=== PATIENT | female | born 1960 | race African-American/Black ===

== ENCOUNTER 2018-08-15 16:31 | Inpatient (IN) | payer MEDICAID ==
[~2018-08-15] VITALS: Ht 175.3 cm; Wt 158.8 kg
[2018-08-15] MEDS ORDERED: ASPIRIN 81MG TABLET PO ONE (17:15)
[2018-08-15] MEDS ORDERED: NITROGLYCERIN 0.4MG TABLET SL SL PRN (17:15)
[2018-08-15 17:59] LABS: BASOPHILS % 0.3 % (0.0-2.0); EOSINOPHILS % 2.2 % (0.0-5.0); HEMATOCRIT. 35.6 % (36.0-48.0); HEMOGLOBIN. 11.6 g/dL (12.0-16.0); LYMPHOCYTES % 42.9 % (20.0-50.0); MEAN CORPUSCULAR VOLUME 92.4 fL (81.0-99.0); MEAN PLATELET VOLUME 10.5 fl (7.4-10.4); MONOCYTES % 8.1 % (2.0-8.0); NEUTROPHILS % 46.5 % (40.0-76.0); PLATELET 174 x1000/uL (130-400); RED BLOOD CELL COUNT 3.86 mill/uL (4.2-5.4); RED CELL DISTRIBUTION WIDTH 17.7 % (11.6-14.6)
[2018-08-15] MEDS ORDERED: BENZONATATE 200MG CAPSULE PO NR (18:00)
[2018-08-15] MEDS ORDERED: SODIUM CHLORIDE 0.9% 1000ML BAG (SEPSIS BOLUS) IV ONE (18:00)
[2018-08-15] MEDS ORDERED: CEFTRIAXONE 1 G PREMIX 50 ML IV ONE (18:00)
[2018-08-15 18:03] LABS: CHLORIDE 108 mEq/L (98-107)
[2018-08-15 18:08] LABS: PROTHROMBIN TIME 10.7 sec (9.6-11.0)
[2018-08-15 20:40] LABS: CLARITY URINE CLOUDY (CLEAR); COLOR URINE DARK YELLOW (YELLOW); KETONES URINE 1+ (NEGATIVE); LEUKOCYTE ESTERASE URINE 2+ (NEGATIVE); NITRITE URINE NEGATIVE (NEGATIVE); OCCULT BLOOD URINE NEGATIVE (NEGATIVE); PH URINE 5.5 (4.5-8.0); PROTEIN URINE NEGATIVE (NEGATIVE); SPECIFIC GRAVITY URINE 1.034 (1.005-1.030)
[2018-08-16] VITALS (7 sets, daily range): BP systolic 96–121; BP diastolic 42–61
[2018-08-16] MEDS ORDERED: PARO-41 PO (01:41)
[2018-08-16] MEDS ORDERED: ATOR20TA65 PO (01:41)
[2018-08-16] MEDS ORDERED: OXYB5SYR2 PO (01:41)
[2018-08-16] MEDS ORDERED: ALLO300T2 PO (01:41)
[2018-08-16] MEDS ORDERED: METF-414 PO (01:41)
[2018-08-16] MEDS ORDERED: LISI40TA4 PO (01:41)
[2018-08-16] MEDS ORDERED: AMLO10TA80 PO (01:41)
[2018-08-16] MEDS ORDERED: NILO150C PO (01:41)
[2018-08-16] MEDS ORDERED: ASPI-1158 PO (01:41)
[2018-08-16] MEDS ORDERED: FOLI0.4T2 PO (01:41)
[2018-08-16] MEDS ORDERED: FURO-151 PO (01:41)
[2018-08-16] MEDS ORDERED: GABA-531 PO (01:42)
[2018-08-16] MEDS ORDERED: IPRATROPIUM/ALBUTEROL 0.5-3(2.5)MG/3ML NEB HHN PRN (01:45)
[2018-08-16] MEDS ORDERED: DEXTROSE 50% WATER 50ML SYRINGE IV PRN (02:00)
[2018-08-16] MEDS: GUAIFENESIN 200MG/10ML SUGAR FREE UDC PO PRN ×3 (02:05→21:48)
[2018-08-16] MEDS ORDERED: ACETAMINOPHEN 325MG TABLET PO PRN (05:45)
[2018-08-16] MEDS: LEVOFLOXACIN 500MG PREMIX 100 ML IV SCH (06:03)
[2018-08-16] MEDS: INSULIN LISPRO 100 UNITS/ML SUBCUT SCH ×4 (06:16→22:07)
[2018-08-16] MEDS: BLOOD SUGAR DIAGNOSTIC STRIP TEST SCH ×4 (06:16→21:44)
[2018-08-16 08:12] LABS: BASOPHILS % 0.9 % (0.0-2.0); EOSINOPHILS % 2.9 % (0.0-5.0); HEMATOCRIT. 34.6 % (36.0-48.0); HEMOGLOBIN. 10.9 g/dL (12.0-16.0); LYMPHOCYTES % 45.3 % (20.0-50.0); MEAN CORPUSCULAR HEMOGLOBIN 29.2 pg (28.0-32.0); MEAN CORPUSCULAR VOLUME 92.8 fL (81.0-99.0); MEAN PLATELET VOLUME 11.7 fl (7.4-10.4); MONOCYTES % 10.5 % (2.0-8.0); NEUTROPHILS % 40.4 % (40.0-76.0); PLATELET 156 x1000/uL (130-400); RED BLOOD CELL COUNT 3.73 mill/uL (4.2-5.4); RED CELL DISTRIBUTION WIDTH 17.6 % (11.6-14.6)
[2018-08-16] MEDS: ALLOPURINOL 300 MG TABLET PO SCH ×2 (08:50→17:31)
[2018-08-16] MEDS: ASPIRIN 81MG EC TABLET PO SCH (08:50)
[2018-08-16] MEDS: GABAPENTIN 300MG CAPSULE PO SCH ×2 (08:50→17:31)
[2018-08-16] MEDS: NILOTINIB PO SCH ×2 (08:50→21:57)
[2018-08-16] MEDS: AMLODIPINE 10MG TABLET PO SCH (08:50)
[2018-08-16 08:52] LABS: CHLORIDE 109 mEq/L (98-107)
[2018-08-16] MEDS ORDERED: MEDICATION NOT ON FORMULARY EA (Gabapentin 300 MG) PO SCH (09:00)
[2018-08-16] MEDS ORDERED: MEDICATION NOT ON FORMULARY EA (Aspirin (Aspirin Ec) 81 MG) PO SCH (09:00)
[2018-08-16] MEDS ORDERED: FOLIC ACID 0.4 MG PO SCH (09:00)
[2018-08-16] MEDS ORDERED: [UNRECOGNIZED DRUG - OTHER] PO SCH (09:00)
[2018-08-16] MEDS ORDERED: MEDICATION NOT ON FORMULARY EA (Allopurinol 300 MG) PO SCH (09:00)
[2018-08-16] MEDS: FOLIC ACID 1MG TABLET PO SCH (14:51)
[2018-08-16 18:36] LABS: LDL CHOLESTEROL 63 mg/dL (5-100)
[2018-08-16 18:38] LABS: HDL CHOLESTEROL 59 mg/dL (40-59)
[2018-08-16] MEDS: ATORVASTATIN CALCIUM 20MG TABLET PO SCH (21:44)
[2018-08-16] MEDS: LORAZEPAM 2MG/ML CPJ IV PRN (23:11)
[2018-08-16] MEDS: BENZONATATE 100MG CAPSULE PO PRN (23:11)
[2018-08-17] VITALS: BP 146/77
[2018-08-17 04:00] VITALS: BP 144/73
[2018-08-17] MEDS: BENZONATATE 100MG CAPSULE PO PRN ×2 (06:15→16:42)
[2018-08-17] MEDS: LEVOFLOXACIN 500MG PREMIX 100 ML IV SCH (06:15)
[2018-08-17] MEDS: LORAZEPAM 2MG/ML CPJ IV PRN (06:15)
[2018-08-17] MEDS: MORPHINE SULFATE 2 MG/ML CPJ (NOT FOR IM USE) IV PRN ×2 (06:18→21:27)
[2018-08-17] MEDS: BLOOD SUGAR DIAGNOSTIC STRIP TEST SCH ×4 (06:18→21:28)
[2018-08-17] MEDS: INSULIN LISPRO 100 UNITS/ML SUBCUT SCH ×4 (06:57→22:07)
[2018-08-17 07:57] VITALS: BP 131/54
[2018-08-17] MEDS: AMLODIPINE 10MG TABLET PO SCH (08:09)
[2018-08-17] MEDS: ALLOPURINOL 300 MG TABLET PO SCH ×2 (08:09→16:42)
[2018-08-17] MEDS: GABAPENTIN 300MG CAPSULE PO SCH ×2 (08:09→16:42)
[2018-08-17] MEDS: FOLIC ACID 1MG TABLET PO SCH (08:09)
[2018-08-17] MEDS: ASPIRIN 81MG EC TABLET PO SCH (08:09)
[2018-08-17] MEDS: NILOTINIB PO SCH ×2 (08:10→21:24)
[2018-08-17 08:36] LABS: BASOPHILS % 0.7 % (0.0-2.0); HEMATOCRIT. 34.6 % (36.0-48.0); MEAN CORPUSCULAR HEMOGLOBIN 29.7 pg (28.0-32.0); MEAN CORPUSCULAR VOLUME 93.4 fL (81.0-99.0); MEAN PLATELET VOLUME 11.8 fl (7.4-10.4); MONOCYTES % 9.2 % (2.0-8.0); NEUTROPHILS % 46.1 % (40.0-76.0); PLATELET 167 x1000/uL (130-400); RED BLOOD CELL COUNT 3.71 mill/uL (4.2-5.4); RED CELL DISTRIBUTION WIDTH 17.3 % (11.6-14.6)
[2018-08-17] MEDS ORDERED: ASPIRIN 81MG EC TABLET PO SCH (09:00)
[2018-08-17 09:09] LABS: CHLORIDE 107 mEq/L (98-107)
[2018-08-17] MEDS: GUAIFENESIN 200MG/10ML SUGAR FREE UDC PO PRN ×2 (10:42→21:25)
[2018-08-17 12:00] VITALS: BP 150/80
[2018-08-17 16:00] VITALS: BP 117/51
[2018-08-17] MEDS: ENOXAPARIN 40MG/0.4ML SYR SUBCUT SCH (17:32)
[2018-08-17 20:00] VITALS: BP 131/75
[2018-08-17] MEDS: ATORVASTATIN CALCIUM 20MG TABLET PO SCH (21:24)
[2018-08-18 00:18] VITALS: BP 117/55
[2018-08-18] MEDS: BENZONATATE 100MG CAPSULE PO PRN ×3 (01:02→20:37)
[2018-08-18 04:00] VITALS: BP 135/61
[2018-08-18] MEDS: ENOXAPARIN 40MG/0.4ML SYR SUBCUT SCH ×2 (06:24→17:13)
[2018-08-18] MEDS: BLOOD SUGAR DIAGNOSTIC STRIP TEST SCH ×4 (06:25→20:39)
[2018-08-18] MEDS: LEVOFLOXACIN 500MG PREMIX 100 ML IV SCH (06:25)
[2018-08-18] MEDS: INSULIN LISPRO 100 UNITS/ML SUBCUT SCH ×4 (06:57→21:10)
[2018-08-18 08:00] VITALS: BP 142/74
[2018-08-18] MEDS: GUAIFENESIN 200MG/10ML SUGAR FREE UDC PO PRN (08:39)
[2018-08-18] MEDS: GABAPENTIN 300MG CAPSULE PO SCH ×2 (08:40→17:14)
[2018-08-18] MEDS: FOLIC ACID 1MG TABLET PO SCH (08:40)
[2018-08-18] MEDS: ALLOPURINOL 300 MG TABLET PO SCH ×2 (08:40→17:14)
[2018-08-18] MEDS: AMLODIPINE 10MG TABLET PO SCH (08:40)
[2018-08-18] MEDS: MORPHINE SULFATE 2 MG/ML CPJ (NOT FOR IM USE) IV PRN ×3 (08:41→17:14)
[2018-08-18] MEDS: ASPIRIN 81MG EC TABLET PO SCH (08:42)
[2018-08-18] MEDS: NILOTINIB PO SCH ×3 (09:00→20:39)
[2018-08-18 10:49] LABS: BASOPHILS % 1.1 % (0.0-2.0); EOSINOPHILS % 2.8 % (0.0-5.0); HEMATOCRIT. 34.3 % (36.0-48.0); HEMOGLOBIN. 10.9 g/dL (12.0-16.0); LYMPHOCYTES % 34.9 % (20.0-50.0); MEAN CORPUSCULAR HEMOGLOBIN 29.4 pg (28.0-32.0); MEAN CORPUSCULAR VOLUME 92.2 fL (81.0-99.0); MEAN PLATELET VOLUME 11.9 fl (7.4-10.4); MONOCYTES % 8.4 % (2.0-8.0); NEUTROPHILS % 52.8 % (40.0-76.0); PLATELET 176 x1000/uL (130-400); RED BLOOD CELL COUNT 3.72 mill/uL (4.2-5.4); RED CELL DISTRIBUTION WIDTH 17.2 % (11.6-14.6)
[2018-08-18 11:14] LABS: CHLORIDE 106 mEq/L (98-107)
[2018-08-18 12:00] VITALS: BP 112/51
[2018-08-18] MEDS: OXYBUTYNIN CHLORIDE 5MG TABLET PO SCH (14:44)
[2018-08-18 15:57] VITALS: BP 114/54
[2018-08-18] MEDS: PROMETHAZINE/DEXTROMETHORPHAN 6.25-15MG/5ML BOTTLE 120ML PO PRN (17:12)
[2018-08-18] MEDS: FLUCONAZOLE 100MG TABLET PO SCH (17:14)
[2018-08-18 20:00] VITALS: BP 110/51
[2018-08-18] MEDS: ATORVASTATIN CALCIUM 20MG TABLET PO SCH (20:39)
[2018-08-19] VITALS: BP 153/83
[2018-08-19] MEDS: MORPHINE SULFATE 2 MG/ML CPJ (NOT FOR IM USE) IV PRN ×5 (00:01→22:51)
[2018-08-19 04:00] VITALS: BP 129/65
[2018-08-19] MEDS: PROMETHAZINE/DEXTROMETHORPHAN 6.25-15MG/5ML BOTTLE 120ML PO PRN ×3 (06:36→11:56)
[2018-08-19] MEDS: ENOXAPARIN 40MG/0.4ML SYR SUBCUT SCH ×2 (06:36→17:52)
[2018-08-19] MEDS: LEVOFLOXACIN 500MG PREMIX 100 ML IV SCH (06:37)
[2018-08-19] MEDS: BLOOD SUGAR DIAGNOSTIC STRIP TEST SCH ×4 (06:37→20:41)
[2018-08-19] MEDS: INSULIN LISPRO 100 UNITS/ML SUBCUT SCH ×4 (06:42→20:54)
[2018-08-19 08:00] VITALS: BP 145/70
[2018-08-19] MEDS: NILOTINIB PO SCH ×3 (09:00→20:51)
[2018-08-19] MEDS: ASPIRIN 81MG EC TABLET PO SCH (09:06)
[2018-08-19] MEDS: AMLODIPINE 10MG TABLET PO SCH (09:06)
[2018-08-19] MEDS: ALLOPURINOL 300 MG TABLET PO SCH ×2 (09:06→17:10)
[2018-08-19] MEDS: GABAPENTIN 300MG CAPSULE PO SCH ×2 (09:06→17:10)
[2018-08-19] MEDS: FLUCONAZOLE 100MG TABLET PO SCH (09:06)
[2018-08-19] MEDS: OXYBUTYNIN CHLORIDE 5MG TABLET PO SCH (09:06)
[2018-08-19] MEDS: FOLIC ACID 1MG TABLET PO SCH (09:06)
[2018-08-19] MEDS: BENZONATATE 100MG CAPSULE PO PRN (09:29)
[2018-08-19 12:00] VITALS: BP 112/57
[2018-08-19 16:00] VITALS: BP 111/56
[2018-08-19] MEDS ORDERED: HYDROCODONE/ACETAMINOPHEN 5/325MG TABLET PO PRN (16:15)
[2018-08-19 20:00] VITALS: BP 118/51
[2018-08-19] MEDS: ATORVASTATIN CALCIUM 20MG TABLET PO SCH (20:51)
[2018-08-20] VITALS: BP 121/53
[2018-08-20 04:00] VITALS: BP 142/82
[2018-08-20] MEDS: BLOOD SUGAR DIAGNOSTIC STRIP TEST SCH ×2 (06:16→11:49)
[2018-08-20] MEDS: ENOXAPARIN 40MG/0.4ML SYR SUBCUT SCH (06:31)
[2018-08-20] MEDS: INSULIN LISPRO 100 UNITS/ML SUBCUT SCH ×2 (06:33→12:17)
[2018-08-20 08:00] VITALS: BP 141/78
[2018-08-20] MEDS: AMLODIPINE 10MG TABLET PO SCH (08:38)
[2018-08-20] MEDS: GABAPENTIN 300MG CAPSULE PO SCH (08:38)
[2018-08-20] MEDS: ALLOPURINOL 300 MG TABLET PO SCH (08:39)
[2018-08-20] MEDS: FOLIC ACID 1MG TABLET PO SCH (08:39)
[2018-08-20] MEDS: ASPIRIN 81MG EC TABLET PO SCH (08:39)
[2018-08-20] MEDS: FLUCONAZOLE 100MG TABLET PO SCH (08:39)
[2018-08-20] MEDS: OXYBUTYNIN CHLORIDE 5MG TABLET PO SCH (08:39)
[2018-08-20] MEDS: NILOTINIB PO SCH (08:40)
[2018-08-20] MEDS: MORPHINE SULFATE 2 MG/ML CPJ (NOT FOR IM USE) IV PRN (08:47)
[2018-08-20] MEDS: PROMETHAZINE/DEXTROMETHORPHAN 6.25-15MG/5ML BOTTLE 120ML PO PRN (09:28)
[2018-08-20 11:37] VITALS: BP 111/43
[2018-08-20 12:00] VITALS: BP 111/43
== END 2018-08-20 14:55 | disposition home or self-care (01) | DRG 720 ==
LOC: ER 16:55 → 8WST 18:40 → ENRESERV 22:34
PROVIDERS: ADMIT Internal Medicine; ATTEND Internal Medicine
PROC: 5A09357 Assistance with Respiratory Ventilation, Less than 24 Consecutive Hours, Continuous Positive Airway Pressure (ICD-10-PCS; principal; 2018-08-17)
DX: A41.9 Sepsis, unspecified organism (principal); J96.00 Acute respiratory failure, unspecified whether with hypoxia or hypercapnia; I50.43 Acute on chronic combined systolic (congestive) and diastolic (congestive) heart failure; I27.20 Pulmonary hypertension, unspecified; C95.90 Leukemia, unspecified not having achieved remission; E44.1 Mild protein-calorie malnutrition; E66.2 Morbid (severe) obesity with alveolar hypoventilation; E87.8 Other disorders of electrolyte and fluid balance, not elsewhere classified; I11.0 Hypertensive heart disease with heart failure; I95.9 Hypotension, unspecified; E11.65 Type 2 diabetes mellitus with hyperglycemia; R55 Syncope and collapse; D64.9 Anemia, unspecified; N39.0 Urinary tract infection, site not specified; E78.5 Hyperlipidemia, unspecified; I42.9 Cardiomyopathy, unspecified; J06.9 Acute upper respiratory infection, unspecified; Z95.810 Presence of automatic (implantable) cardiac defibrillator; Z79.4 Long term (current) use of insulin; Z79.899 Other long term (current) drug therapy; Z87.01 Personal history of pneumonia (recurrent); Z98.891 History of uterine scar from previous surgery; Z79.82 Long term (current) use of aspirin; Z79.84 Long term (current) use of oral hypoglycemic drugs; Z71.3 Dietary counseling and surveillance; Z92.21 Personal history of antineoplastic chemotherapy; Z68.43 Body mass index [BMI] 50.0-59.9, adult
CPT/HCPCS: 36415; 71045; 80048; 80061; 82962; 83605; 83880; 84443; 84484; 87106; 93005; 93306; 94660; 96365; 97162; 99291; C1893; J0696; J1650; J1815; J1956; J2060; J2270; J7050

== ENCOUNTER 2018-09-17 21:27 | Emergency (ER) | payer MEDICAID ==
[~2018-09-17] VITALS: Ht 175.3 cm; Wt 150.0 kg
[~2018-09-17 21:27] MED LIST: ALLO300T2 PO; AMLO10TA80 PO; ASPI-1158 PO; ATOR20TA65 PO; FOLI0.4T2 PO; FURO-151 PO; GABA-531 PO; LISI40TA4 PO; METF-414 PO; NILO150C PO; OXYB5SYR2 PO; PARO-41 PO
[2018-09-18 03:24] LABS: CHLORIDE 103 mEq/L (98-107)
[2018-09-18 03:31] LABS: BASOPHILS % 0.6 % (0.0-2.0); EOSINOPHILS % 3.5 % (0.0-5.0); HEMATOCRIT. 39.4 % (36.0-48.0); HEMOGLOBIN. 12.9 g/dL (12.0-16.0); LYMPHOCYTES % 34.4 % (20.0-50.0); MEAN CORPUSCULAR HEMOGLOBIN 29.4 pg (28.0-32.0); MEAN CORPUSCULAR VOLUME 89.5 fL (81.0-99.0); MEAN PLATELET VOLUME 11.2 fl (7.4-10.4); MONOCYTES % 8.7 % (2.0-8.0); NEUTROPHILS % 52.8 % (40.0-76.0); PLATELET 202 x1000/uL (130-400); RED CELL DISTRIBUTION WIDTH 16.6 % (11.6-14.6)
[2018-09-18] MEDS ORDERED: HYDROCODONE/ACETAMINOPHEN 5/325MG TABLET PO ONE (04:45)
[2018-09-18 06:40] VITALS: BP 120/68
== END 2018-09-18 06:56 | disposition home or self-care (01) ==
LOC: ER 21:27
DX: R07.89 Other chest pain (principal); R06.02 Shortness of breath; I10 Essential (primary) hypertension; Z95.0 Presence of cardiac pacemaker; K46.9 Unspecified abdominal hernia without obstruction or gangrene
CPT/HCPCS: 36415; 71045; 83880; 84484; 93005; 99284

== ENCOUNTER 2019-04-18 16:41 | Emergency (ER) | payer MEDICAID ==
[~2019-04-18] VITALS: Ht 175.3 cm; Wt 150.0 kg
[2019-04-18 17:01] VITALS: BP 136/77
[2019-04-18] MEDS ORDERED: FUROSEMIDE 40MG TABLET PO ONE (18:45)
[2019-04-18 19:05] LABS: HEMOGLOBIN. 12.4 g/dL (12.0-16.0); MEAN CORPUSCULAR HEMOGLOBIN 28.7 pg (28.0-32.0); MEAN CORPUSCULAR VOLUME 90.7 fL (81.0-99.0); MEAN PLATELET VOLUME 11.3 fl (7.4-10.4); PLATELET 199 x1000/uL (130-400); RED BLOOD CELL COUNT 4.31 mill/uL (4.2-5.4); RED CELL DISTRIBUTION WIDTH 19.3 % (11.6-14.6)
[2019-04-18 19:08] LABS: CHLORIDE 106 mEq/L (98-107)
[2019-04-18 19:12] LABS: PARTIAL THROMBOPLASTIN TIME 25.3 sec (23.4-31.0); PROTHROMBIN TIME 10.9 sec (9.6-11.0)
[2019-04-18 20:26] LABS: CLARITY URINE CLEAR (CLEAR); COLOR URINE YELLOW (YELLOW); KETONES URINE NEGATIVE (NEGATIVE); LEUKOCYTE ESTERASE URINE NEGATIVE (NEGATIVE); NITRITE URINE NEGATIVE (NEGATIVE); OCCULT BLOOD URINE NEGATIVE (NEGATIVE); PH URINE 5.5 (4.5-8.0); PROTEIN URINE TRACE (NEGATIVE); UROBILINOGEN URINE 0.2 E.U./dL (0.2-1.0)
[2019-04-18 20:47] LABS: ATYPICAL LYMPHOCYTES 7; NUCLEATED RED BLOOD CELLS 2 /100 WBC; PLATELET ESTIMATE NORMAL
== END 2019-04-18 20:51 | disposition home or self-care (01) ==
LOC: ER 16:41 → EDBEDREQ 20:23 → ER 20:51 → CANBEDREQ 21:16
DX: C95.90 Leukemia, unspecified not having achieved remission (principal); M79.89 Other specified soft tissue disorders; R60.9 Edema, unspecified; R06.02 Shortness of breath; Z79.899 Other long term (current) drug therapy; I11.9 Hypertensive heart disease without heart failure; E11.9 Type 2 diabetes mellitus without complications; Z98.890 Other specified postprocedural states; Z95.0 Presence of cardiac pacemaker
CPT/HCPCS: 36415; 71045; 80053; 81003; 83880; 84484; 85025; 93005; 93970; 99285

== ENCOUNTER 2020-09-25 17:23 | Inpatient (IN) | payer MEDICAID ==
[~2020-09-25] VITALS: Ht 175.3 cm; Wt 149.8 kg
[~2020-09-25 17:23] MED LIST changes: -ASPI-1158 PO; +ASPI-1406 PO; -FOLI0.4T2 PO; +FOLI0.4T6 PO; -GABA-531 PO; +GABA-532 PO; +LISI40TA13 PO; -LISI40TA4 PO
[2020-09-25 19:10] LABS: BASOPHILS % 1.9 % (0.0-2.0); EOSINOPHILS % 2.8 % (0.0-5.0); HEMATOCRIT. 40.1 % (36.0-48.0); HEMOGLOBIN. 12.8 g/dL (12.0-16.0); LYMPHOCYTES % 26.5 % (20.0-50.0); MEAN CORPUSCULAR HEMOGLOBIN 28.2 pg (28.0-32.0); MEAN CORPUSCULAR VOLUME 88.3 fL (81.0-99.0); MEAN PLATELET VOLUME 11.3 fl (7.4-10.4); MONOCYTES % 6.7 % (2.0-8.0); NEUTROPHILS % 62.1 % (40.0-76.0); PLATELET 151 x1000/uL (130-400); RED BLOOD CELL COUNT 4.55 mill/uL (4.2-5.4); RED CELL DISTRIBUTION WIDTH 18.6 % (11.6-14.6)
[2020-09-25 19:18] LABS: CHLORIDE 106 mEq/L (98-107)
[2020-09-25 20:41] LABS: CLARITY URINE CLEAR (CLEAR); COLOR URINE YELLOW (YELLOW); KETONES URINE NEGATIVE (NEGATIVE); LEUKOCYTE ESTERASE URINE 2+ (NEGATIVE); NITRITE URINE NEGATIVE (NEGATIVE); OCCULT BLOOD URINE 1+ (NEGATIVE); PROTEIN URINE TRACE (NEGATIVE); SPECIFIC GRAVITY URINE 1.017 (1.005-1.030)
[2020-09-25] MEDS ORDERED: CEFTRIAXONE 1 G PREMIX 50 ML IV ONE (21:00)
[2020-09-25] MEDS ORDERED: FUROSEMIDE 100MG/10ML VIAL IVP NR (21:15)
[2020-09-26 03:12] VITALS: BP 130/56
[2020-09-26] MEDS ORDERED: DEXTROSE 50% WATER 50ML SYRINGE IV PRN (04:15)
[2020-09-26] MEDS ORDERED: CLONIDINE 0.1MG TABLET PO PRN (04:15)
[2020-09-26] MEDS ORDERED: HYDROCODONE/ACETAMINOPHEN 5/325MG TABLET PO PRN (04:15)
[2020-09-26 04:32] VITALS: BP 130/56
[2020-09-26] MEDS: ACETAMINOPHEN 325MG TABLET PO PRN ×2 (04:46→23:03)
[2020-09-26] MEDS: BLOOD SUGAR DIAGNOSTIC STRIP TEST SCH ×4 (05:53→21:00)
[2020-09-26] MEDS: GABAPENTIN 300MG CAPSULE PO SCH ×3 (06:14→21:41)
[2020-09-26] MEDS: INSULIN LISPRO 100 UNITS/ML SUBCUT SCH ×4 (06:15→21:00)
[2020-09-26 08:00] VITALS: BP 149/82
[2020-09-26 08:51] LABS: CHLORIDE 100 mEq/L (98-107)
[2020-09-26 09:04] LABS: HEMATOCRIT 43.4 % (36.0-48.0); HEMOGLOBIN 13.7 g/dL (12.0-16.0); MEAN CORPUSCULAR HEMOGLOBIN 27.9 pg (28.0-32.0); MEAN CORPUSCULAR VOLUME 88.6 fL (81.0-99.0); PLATELET 174 x1000/uL (130-400); RED CELL DISTRIBUTION WIDTH 18.5 % (11.6-14.6)
[2020-09-26] MEDS: OXYBUTYNIN CHLORIDE 5MG TABLET PO SCH ×2 (09:45→21:40)
[2020-09-26] MEDS: AMLODIPINE 10MG TABLET PO SCH (09:45)
[2020-09-26] MEDS: ALLOPURINOL 100 MG TABLET PO SCH (09:45)
[2020-09-26] MEDS: LISINOPRIL 40MG TABLET PO SCH (09:46)
[2020-09-26] MEDS: FUROSEMIDE 40MG TABLET PO SCH (09:46)
[2020-09-26] MEDS: ASPIRIN 81MG TABLET PO SCH (09:46)
[2020-09-26 12:00] VITALS: BP 112/50
[2020-09-26] MEDS ORDERED: NALOXONE HCL 0.4MG/ML VIAL IV PRN (13:00)
[2020-09-26] MEDS: CEFTRIAXONE 1,000 MG in DEXTROSE 5% WATER 50 ML IV SCH (14:16)
[2020-09-26] MEDS: ENOXAPARIN 40MG/0.4ML SYR SUBCUT SCH (14:16)
[2020-09-26 16:00] VITALS: BP_SYST 134; BP_SYST 148; BP_DIAS 72; BP_DIAS 86
[2020-09-26] MEDS: DOCUSATE SODIUM 100MG CAPSULE PO SCH (17:13)
[2020-09-26 20:00] VITALS: BP 135/53
[2020-09-26] MEDS: ATORVASTATIN CALCIUM 20MG TABLET PO SCH (21:41)
[2020-09-26] MEDS: ZOLPIDEM TARTRATE 5MG TABLET PO PRN (21:41)
[2020-09-27] VITALS: BP 149/91
[2020-09-27] MEDS: ENOXAPARIN 40MG/0.4ML SYR SUBCUT SCH ×3 (02:47→22:54)
[2020-09-27] MEDS: LORAZEPAM 2MG/ML CPJ IV PRN (02:55)
[2020-09-27] MEDS: GABAPENTIN 300MG CAPSULE PO SCH ×3 (06:00→20:27)
[2020-09-27] MEDS: BLOOD SUGAR DIAGNOSTIC STRIP TEST SCH ×4 (06:40→20:27)
[2020-09-27] MEDS: INSULIN LISPRO 100 UNITS/ML SUBCUT SCH ×4 (07:10→20:27)
[2020-09-27 08:00] VITALS: BP 123/58
[2020-09-27] MEDS: FUROSEMIDE 40MG TABLET PO SCH (08:44)
[2020-09-27] MEDS: OXYBUTYNIN CHLORIDE 5MG TABLET PO SCH ×2 (08:44→20:28)
[2020-09-27] MEDS: AMLODIPINE 10MG TABLET PO SCH (08:45)
[2020-09-27] MEDS: DOCUSATE SODIUM 100MG CAPSULE PO SCH ×2 (08:45→16:12)
[2020-09-27] MEDS: ASPIRIN 81MG TABLET PO SCH (08:45)
[2020-09-27] MEDS: ALLOPURINOL 100 MG TABLET PO SCH (08:45)
[2020-09-27] MEDS: LISINOPRIL 40MG TABLET PO SCH (08:45)
[2020-09-27 10:41] LABS: BASOPHILS % 1.3 % (0.0-2.0); EOSINOPHILS % 3.7 % (0.0-5.0); HEMATOCRIT. 44.6 % (36.0-48.0); HEMOGLOBIN. 13.9 g/dL (12.0-16.0); LYMPHOCYTES % 25.2 % (20.0-50.0); MEAN CORPUSCULAR VOLUME 89.9 fL (81.0-99.0); MEAN PLATELET VOLUME 12.1 fl (7.4-10.4); MONOCYTES % 6.3 % (2.0-8.0); NEUTROPHILS % 63.5 % (40.0-76.0); PLATELET 167 x1000/uL (130-400); RED BLOOD CELL COUNT 4.97 mill/uL (4.2-5.4); RED CELL DISTRIBUTION WIDTH 18.8 % (11.6-14.6)
[2020-09-27 11:15] LABS: CHLORIDE 99 mEq/L (98-107)
[2020-09-27 11:24] LABS: CREATINE KINASE 125 IU/L (26-192)
[2020-09-27 12:00] VITALS: BP 140/82
[2020-09-27] MEDS: CEFTRIAXONE 1,000 MG in DEXTROSE 5% WATER 50 ML IV SCH (14:18)
[2020-09-27 16:00] VITALS: BP 119/65
[2020-09-27] MEDS: ACETAMINOPHEN 325MG TABLET PO PRN (16:12)
[2020-09-27] MEDS: DIPHENHYDRAMINE HCL/ZINC ACET 28 GM CREAM TOP PRN ×2 (16:21→20:40)
[2020-09-27 19:19] LABS: *AMPHETAMINES SCREEN URINE NEGATIVE (NEGATIVE); *BARBITURATES SCREEN URINE NEGATIVE (NEGATIVE); *BENZODIAZEPINES SCREEN URINE NEGATIVE (NEGATIVE); *COCAINE SCREEN URINE NEGATIVE (NEGATIVE); METHADONE URINE SCREEN NEGATIVE (NEGATIVE)
[2020-09-27 19:20] LABS: CANNABINOID URINE SCREEN NEGATIVE (NEGATIVE); OPIATES URINE SCREEN NEGATIVE (NEGATIVE); PHENCYCLIDINE URINE SCREEN NEGATIVE (NEGATIVE)
[2020-09-27 20:00] VITALS: BP 131/68
[2020-09-27] MEDS: ATORVASTATIN CALCIUM 20MG TABLET PO SCH (20:27)
[2020-09-28] VITALS: BP 105/44
[2020-09-28] MEDS: ACETAMINOPHEN 325MG TABLET PO PRN (01:41)
[2020-09-28] MEDS: ZOLPIDEM TARTRATE 5MG TABLET PO PRN (02:01)
[2020-09-28 04:00] VITALS: BP 137/80
[2020-09-28] MEDS: BLOOD SUGAR DIAGNOSTIC STRIP TEST SCH ×4 (05:49→21:02)
[2020-09-28] MEDS: GABAPENTIN 300MG CAPSULE PO SCH ×3 (05:49→21:13)
[2020-09-28] MEDS: INSULIN LISPRO 100 UNITS/ML SUBCUT SCH ×4 (06:10→21:01)
[2020-09-28 08:00] VITALS: BP 128/75
[2020-09-28 08:35] LABS: BASOPHILS % 1.3 % (0.0-2.0); EOSINOPHILS % 4.7 % (0.0-5.0); HEMATOCRIT. 46.3 % (36.0-48.0); HEMOGLOBIN. 14.4 g/dL (12.0-16.0); LYMPHOCYTES % 30.7 % (20.0-50.0); MEAN CORPUSCULAR HEMOGLOBIN 27.9 pg (28.0-32.0); MEAN CORPUSCULAR VOLUME 89.8 fL (81.0-99.0); MEAN PLATELET VOLUME 11.9 fl (7.4-10.4); MONOCYTES % 9.6 % (2.0-8.0); NEUTROPHILS % 53.7 % (40.0-76.0); PLATELET 160 x1000/uL (130-400); RED BLOOD CELL COUNT 5.16 mill/uL (4.2-5.4); RED CELL DISTRIBUTION WIDTH 18.8 % (11.6-14.6)
[2020-09-28 08:48] LABS: CHLORIDE 102 mEq/L (98-107)
[2020-09-28] MEDS: ENOXAPARIN 40MG/0.4ML SYR SUBCUT SCH ×2 (09:00→21:00)
[2020-09-28] MEDS: AMLODIPINE 10MG TABLET PO SCH (09:32)
[2020-09-28] MEDS: LISINOPRIL 40MG TABLET PO SCH (09:32)
[2020-09-28] MEDS: FUROSEMIDE 40MG TABLET PO SCH (09:32)
[2020-09-28] MEDS: ALLOPURINOL 100 MG TABLET PO SCH (09:32)
[2020-09-28] MEDS: DOCUSATE SODIUM 100MG CAPSULE PO SCH ×2 (09:32→17:02)
[2020-09-28] MEDS: ASPIRIN 81MG TABLET PO SCH (09:32)
[2020-09-28] MEDS: OXYBUTYNIN CHLORIDE 5MG TABLET PO SCH ×2 (09:32→21:05)
[2020-09-28 12:00] VITALS: BP 139/81
[2020-09-28] MEDS: CEFTRIAXONE 1,000 MG in DEXTROSE 5% WATER 50 ML IV SCH (13:39)
[2020-09-28 16:00] VITALS: BP 129/74
[2020-09-28] MEDS ORDERED: LEVO500T89 MT (16:24)
[2020-09-28 20:00] VITALS: BP 157/76
[2020-09-28] MEDS: ATORVASTATIN CALCIUM 20MG TABLET PO SCH (20:59)
[2020-09-28] MEDS: DIPHENHYDRAMINE HCL/ZINC ACET 28 GM CREAM TOP PRN (21:00)
[2020-09-29] VITALS: BP 140/76
[2020-09-29] MEDS: ZOLPIDEM TARTRATE 5MG TABLET PO PRN (00:45)
[2020-09-29 04:00] VITALS: BP 106/54
[2020-09-29] MEDS: GABAPENTIN 300MG CAPSULE PO SCH ×3 (05:58→21:47)
[2020-09-29] MEDS: INSULIN LISPRO 100 UNITS/ML SUBCUT SCH ×4 (06:10→21:47)
[2020-09-29] MEDS: BLOOD SUGAR DIAGNOSTIC STRIP TEST SCH ×4 (06:10→21:07)
[2020-09-29 07:12] LABS: CHLORIDE 102 mEq/L (98-107)
[2020-09-29 07:50] LABS: BASOPHILS % 1.2 % (0.0-2.0); EOSINOPHILS % 4.7 % (0.0-5.0); HEMATOCRIT. 44.8 % (36.0-48.0); HEMOGLOBIN. 14.2 g/dL (12.0-16.0); LYMPHOCYTES % 32.4 % (20.0-50.0); MEAN CORPUSCULAR HEMOGLOBIN 28.5 pg (28.0-32.0); MEAN CORPUSCULAR VOLUME 89.8 fL (81.0-99.0); MEAN PLATELET VOLUME 12.2 fl (7.4-10.4); MONOCYTES % 7.2 % (2.0-8.0); NEUTROPHILS % 54.5 % (40.0-76.0); PLATELET 168 x1000/uL (130-400); RED BLOOD CELL COUNT 4.99 mill/uL (4.2-5.4); RED CELL DISTRIBUTION WIDTH 18.8 % (11.6-14.6)
[2020-09-29 08:00] VITALS: BP 133/74
[2020-09-29] MEDS: ASPIRIN 81MG TABLET PO SCH (09:20)
[2020-09-29] MEDS: AMLODIPINE 10MG TABLET PO SCH (09:20)
[2020-09-29] MEDS: FUROSEMIDE 40MG TABLET PO SCH (09:20)
[2020-09-29] MEDS: ALLOPURINOL 100 MG TABLET PO SCH (09:20)
[2020-09-29] MEDS: DOCUSATE SODIUM 100MG CAPSULE PO SCH ×3 (09:20→17:33)
[2020-09-29] MEDS: LISINOPRIL 40MG TABLET PO SCH (09:20)
[2020-09-29] MEDS: OXYBUTYNIN CHLORIDE 5MG TABLET PO SCH ×2 (09:21→21:47)
[2020-09-29 12:00] VITALS: BP 117/66
[2020-09-29] MEDS: ENOXAPARIN 40MG/0.4ML SYR SUBCUT SCH ×2 (12:40→21:47)
[2020-09-29] MEDS: CEFTRIAXONE 1,000 MG in DEXTROSE 5% WATER 50 ML IV SCH (13:42)
[2020-09-29 16:30] VITALS: BP 106/58
[2020-09-29 20:00] VITALS: BP 130/78
[2020-09-29] MEDS: ATORVASTATIN CALCIUM 20MG TABLET PO SCH (21:47)
[2020-09-29] MEDS: LORAZEPAM 2MG/ML CPJ IV PRN (22:40)
[2020-09-30 00:31] VITALS: BP 150/83
[2020-09-30] MEDS: ZOLPIDEM TARTRATE 5MG TABLET PO PRN (01:48)
[2020-09-30 04:00] VITALS: BP 181/70
[2020-09-30] MEDS: GABAPENTIN 300MG CAPSULE PO SCH (06:17)
[2020-09-30] MEDS: BLOOD SUGAR DIAGNOSTIC STRIP TEST SCH (06:38)
[2020-09-30] MEDS: INSULIN LISPRO 100 UNITS/ML SUBCUT SCH (06:42)
[2020-09-30 08:00] VITALS: BP 146/90
[2020-09-30 08:52] VITALS: BP 146/90
[2020-09-30] MEDS: AMLODIPINE 10MG TABLET PO SCH (09:11)
[2020-09-30] MEDS: DOCUSATE SODIUM 100MG CAPSULE PO SCH (09:11)
[2020-09-30] MEDS: FUROSEMIDE 40MG TABLET PO SCH (09:11)
[2020-09-30] MEDS: ALLOPURINOL 100 MG TABLET PO SCH (09:11)
[2020-09-30] MEDS: ASPIRIN 81MG TABLET PO SCH (09:11)
[2020-09-30] MEDS: OXYBUTYNIN CHLORIDE 5MG TABLET PO SCH (09:13)
[2020-09-30] MEDS: LISINOPRIL 40MG TABLET PO SCH (09:14)
== END 2020-09-30 12:35 | disposition home or self-care (01) | DRG 48 ==
LOC: ER 17:23 → 7EST 23:03 → ENRESERV 09-26 01:27
PROVIDERS: ADMIT Internal Medicine; ATTEND Internal Medicine
PROC: 4B02XSZ Measurement of Cardiac Pacemaker, External Approach (ICD-10-PCS; principal; 2020-09-27)
DX: G90.8 Other disorders of autonomic nervous system (principal); J96.01 Acute respiratory failure with hypoxia; I50.33 Acute on chronic diastolic (congestive) heart failure; J18.9 Pneumonia, unspecified organism; E44.0 Moderate protein-calorie malnutrition; I27.20 Pulmonary hypertension, unspecified; I11.0 Hypertensive heart disease with heart failure; K46.9 Unspecified abdominal hernia without obstruction or gangrene; N39.0 Urinary tract infection, site not specified; E11.9 Type 2 diabetes mellitus without complications; E66.01 Morbid (severe) obesity due to excess calories; E78.00 Pure hypercholesterolemia, unspecified; E78.5 Hyperlipidemia, unspecified; Z20.822 Contact with and (suspected) exposure to COVID-19; Z68.42 Body mass index [BMI] 45.0-49.9, adult; Z85.6 Personal history of leukemia; Z79.4 Long term (current) use of insulin; Z95.810 Presence of automatic (implantable) cardiac defibrillator; Z79.899 Other long term (current) drug therapy; Z71.3 Dietary counseling and surveillance; Z79.82 Long term (current) use of aspirin; Z59.0 Homelessness
CPT/HCPCS: 36415; 71045; 80048; 80053; 80305; 81003; 82550; 82962; 83036; 83735; 83880; 84484; 85025; 85027; 85379; 87426; 93005; 93306; 99285; J0696; J1650; J1815; J1940; J2060; J7040; J7060